=== PATIENT | male | born 1960 | race Caucasian/White ===

== ENCOUNTER 2019-04-21 15:42 | Inpatient (IN) ==
[2019-04-21] MEDS ORDERED: Ondansetron 4 MG/2 ML VIAL IVP ONE (15:59)
[2019-04-21] MEDS ORDERED: *HR* HYDROmorphone (PF) 1 MG/ML SYRINGE IVP ONE (15:59)
[2019-04-21 16:22] LABS: Basophils % 0.2 %; Eosinophils # 0.1 K/mcL (0.0-0.6); Eosinophils % 0.7 %; Hematocrit 40.1 % (37.5-50.1); Hemoglobin 13.4 g/dL (12.9-16.9); Immature Granulocytes % 0.3 % (0-4); Lymphocytes # 1.1 K/mcL (0.6-4.6); Lymphocytes % 7.3 %; Mean Corpuscular HGB Conc 33.4 g/dL (31.6-35.5); Mean Corpuscular Hemoglobin 30.7 pg (28.0-33.3); Mean Corpuscular Volume 91.8 fL (83.0-100.0); Mean Platelet Volume 9.9 fL (9.4-12.4); Monocytes # 0.6 K/mcL (0.0-1.3); Monocytes % 4.1 %; Neutrophils # 12.9 K/mcL (1.6-8.9); Platelet Count 279 K/mcL (140-400); Red Blood Count 4.37 M/mcL (4.19-5.50); Red Cell Distribution Width 11.6 % (11.5-14.5); Segmented Neutrophils % 87.4 %; White Blood Count 14.7 K/mcL (4.3-11.1)
[2019-04-21 16:34] LABS: INR 1.1; Prothrombin Time 12.3 Seconds (9.4-12.1)
[2019-04-21 16:38] LABS: BUN/Creatinine Ratio 15 (6-26); Blood Urea Nitrogen 17 mg/dL (6-20); Calcium 9.7 mg/dL (8.6-10.3); Carbon Dioxide 33 mEq/L (23-29); Chloride 101 mEq/L (98-107); Glucose 116 mg/dL (70-105); Osmolality,Calculated 281 (280-300); Potassium 4.4 mEq/L (3.5-5.1); Sodium 134 mEq/L (136-145); eGFR For African Americans > 60 (> 60); eGFR For Non-African Americans > 60 (> 60)
[2019-04-21 16:39] LABS: Albumin/Globulin Ratio 1.6 (1.1-2.2); Bilirubin,Direct 0.1 mg/dL (0.0-0.2); Bilirubin,Indirect 0.3 mg/dL (0.0-1.2); Bilirubin,Total 0.4 mg/dL (0.3-1.0); Globulin 2.5 g/dL (2.4-3.5); Total Protein 6.5 g/dL (6.4-8.9)
[2019-04-21 17:19] LABS: Bilirubin,Urine Small (Negative); Blood,Urine Negative (Negative); Clarity,Urine Clear (Clear); Color,Urine Dark Yellow (Yellow); Glucose,Urine (UA) Normal (Normal); Ketones,Urine Trace mg/dL (Negative); Leukocyte Esterase,Urine Negative (Negative); Nitrite,Urine Negative (Negative); Protein,Urine 30 mg/dL (Neg-Trace); Specific Gravity,Urine 1.027 (1.010-1.025); Urobilinogen,Urine Normal (Normal)
[2019-04-21 17:21] LABS: Bacteria,Urine None Seen per hpf (None-Few); Hyaline Casts,Urine None Seen per lpf (None-Few); RBC,Urine 0-3 per hpf (0-3); Squamous Epithelial Cell,Urine Few per lpf (None-Few); WBC,Urine 0-3 per hpf (0-3)
[2019-04-21] MEDS ORDERED: Piperacillin/Tazobactam 4.5 GM in Water for inj. (sterile) 20 ML IVP ONE (17:28)
[2019-04-21] MEDS ORDERED: Pantoprazole 40 MG in 0.9 % Sodium Chloride Mini Bag 100 ML IVC SCH (17:30)
[2019-04-21] MEDS ORDERED: Piperacillin/Tazobactam 3.375 GM in Water for inj. (sterile) 20 ML IVP ONE (17:31)
[2019-04-21] MEDS ORDERED: Pantoprazole 40 MG VIAL IVP ONE (17:55)
[2019-04-21] MEDS ORDERED: Ondansetron 4 MG/2 ML VIAL IVP PRN ×2 (18:14→23:38)
[2019-04-21] MEDS ORDERED: Naloxone 0.4 MG/ML INJ IVP PRN ×2 (18:14→23:38)
[2019-04-21] MEDS ORDERED: *HR* Promethazine 25 MG/ML VIAL IVP PRN (18:14)
[2019-04-21] MEDS ORDERED: Ringers Solution, Lactated 2,000 ML IVC SCH ×2 (18:15→23:38)
[2019-04-21] MEDS ORDERED: Morphine Sulfate 2 MG/ML SYRINGE IVP PRN ×2 (18:41→23:38)
[2019-04-21] MEDS ORDERED: *HR* FentaNYL (PF) 100 MCG/2 ML VIAL ONE (18:53)
[2019-04-21] MEDS ORDERED: *HR* Midazolam HCl 2 MG/2 ML VIAL ONE (18:54)
[2019-04-21] MEDS ORDERED: *HR* Propofol 200 MG/20 ML VIAL IVP ONE (18:54)
[2019-04-21] MEDS ORDERED: Acetaminophen IV 1,000 MG/100 ML INFUS..BTL ONE (19:15)
[2019-04-21] MEDS ORDERED: Albuterol 2.5 MG/3 ML NEBULIZER IH ONE (19:18)
[2019-04-21] MEDS ORDERED: Bupivacaine/EPI 1:200k 0.5%PF 30 ML VIAL ONE (19:19)
[2019-04-21 19:20] LABS: Hematocrit 37.3 % (37.5-50.1); Hemoglobin 12.4 g/dL (12.9-16.9)
[2019-04-21] MEDS ORDERED: *HR* OxyCODONE Immed Rel 5 MG TABLET PO PRN (19:25)
[2019-04-21] MEDS ORDERED: EPHEDrine 50 MG/ML VIAL ONE (20:07)
[2019-04-21] MEDS ORDERED: Neostigmine Methylsulfate 3 MG/3 ML SYRINGE ONE (21:29)
[2019-04-21] MEDS: *HR* HYDROmorphone (PF) 1 MG/ML SYRINGE IVP PRN ×4 (22:06→22:53)
[2019-04-21] MEDS ORDERED: Ringers Solution, Lactated 1,000 ML ONE (22:51)
[2019-04-22] MEDS ORDERED: Piperacillin/Tazobactam 3.375 GM in 0.9 % Sodium Chloride Mini Bag 100 ML IVPB SCH
[2019-04-22] MEDS: Piperacillin/Tazobactam 3.375 GM in 0.9 % Sodium Chloride Mini Bag 100 ML IVPB SCH ×3 (00:35→16:25)
[2019-04-22] MEDS: Acetaminophen IV 1,000 MG/100 ML INFUS..BTL IVPB SCH ×4 (01:56→20:00)
[2019-04-22] MEDS: Pantoprazole 40 MG in 0.9 % Sodium Chloride Mini Bag 100 ML IVC SCH ×5 (02:56→20:05)
[2019-04-22 05:03] LABS: Basophils % 0.1 %; Hematocrit 37.3 % (37.5-50.1); Hemoglobin 12.9 g/dL (12.9-16.9); Immature Granulocytes % 0.4 % (0-4); Lymphocytes # 0.4 K/mcL (0.6-4.6); Lymphocytes % 3.8 %; Mean Corpuscular HGB Conc 34.6 g/dL (31.6-35.5); Mean Corpuscular Hemoglobin 32.6 pg (28.0-33.3); Mean Corpuscular Volume 94.2 fL (83.0-100.0); Mean Platelet Volume 10.2 fL (9.4-12.4); Monocytes # 0.3 K/mcL (0.0-1.3); Monocytes % 2.5 %; Neutrophils # 9.3 K/mcL (1.6-8.9); Platelet Count 252 K/mcL (140-400); Red Blood Count 3.96 M/mcL (4.19-5.50); Red Cell Distribution Width 11.5 % (11.5-14.5); Segmented Neutrophils % 93.2 %
[2019-04-22 05:21] LABS: BUN/Creatinine Ratio 15 (6-26); Blood Urea Nitrogen 16 mg/dL (6-20); Calcium 8.8 mg/dL (8.6-10.3); Carbon Dioxide 27 mEq/L (23-29); Chloride 101 mEq/L (98-107); Glucose 138 mg/dL (70-105); Osmolality,Calculated 283 (280-300); Potassium 4.9 mEq/L (3.5-5.1); Sodium 135 mEq/L (136-145); eGFR For African Americans > 60 (> 60); eGFR For Non-African Americans > 60 (> 60)
[2019-04-22] MEDS ORDERED: Chloraseptic Spray 177 ML BOTTLE MM PRN (11:35)
[2019-04-22] MEDS: 0.9 % Sodium Chloride 1,000 ML IVC SCH (14:16)
[2019-04-22] MEDS ORDERED: *HR* OxyCODONE Oral Soln 5 MG/5 ML UD.LIQ PO ONE (16:48)
[2019-04-22] MEDS ORDERED: Morphine Sulfate 2 MG/ML SYRINGE IVP ONE (17:15)
[2019-04-23] MEDS: Pantoprazole 40 MG in 0.9 % Sodium Chloride Mini Bag 100 ML IVC SCH ×5 (00:38→21:15)
[2019-04-23] MEDS: 0.9 % Sodium Chloride 1,000 ML IVC SCH ×3 (00:39→20:00)
[2019-04-23] MEDS: Piperacillin/Tazobactam 3.375 GM in 0.9 % Sodium Chloride Mini Bag 100 ML IVPB SCH ×3 (00:40→15:42)
[2019-04-23] MEDS: Acetaminophen IV 1,000 MG/100 ML INFUS..BTL IVPB SCH ×4 (04:01→20:04)
[2019-04-23 04:32] LABS: Basophils % 0.3 %; Eosinophils # 0.3 K/mcL (0.0-0.6); Eosinophils % 2.7 %; Hematocrit 36.2 % (37.5-50.1); Hemoglobin 11.8 g/dL (12.9-16.9); Immature Granulocytes % 0.3 % (0-4); Lymphocytes % 10.3 %; Mean Corpuscular HGB Conc 32.6 g/dL (31.6-35.5); Mean Corpuscular Hemoglobin 30.7 pg (28.0-33.3); Mean Corpuscular Volume 94.3 fL (83.0-100.0); Mean Platelet Volume 9.8 fL (9.4-12.4); Monocytes # 0.5 K/mcL (0.0-1.3); Monocytes % 5.6 %; Neutrophils # 7.9 K/mcL (1.6-8.9); Platelet Count 239 K/mcL (140-400); Red Blood Count 3.84 M/mcL (4.19-5.50); Red Cell Distribution Width 11.6 % (11.5-14.5); Segmented Neutrophils % 80.8 %; White Blood Count 9.7 K/mcL (4.3-11.1)
[2019-04-23 04:52] LABS: BUN/Creatinine Ratio 14 (6-26); Blood Urea Nitrogen 15 mg/dL (6-20); Calcium 8.6 mg/dL (8.6-10.3); Carbon Dioxide 27 mEq/L (23-29); Chloride 104 mEq/L (98-107); Glucose 69 mg/dL (70-105); Magnesium 1.8 mg/dL (1.6-2.6); Osmolality,Calculated 287 (280-300); Phosphorous 3.2 mg/dL (2.7-4.5); Potassium 4.1 mEq/L (3.5-5.1); Sodium 139 mEq/L (136-145); eGFR For African Americans > 60 (> 60); eGFR For Non-African Americans > 60 (> 60)
[2019-04-23] MEDS: Fluconazole 400 MG/200 ML 400 MG/200 ML BAG IVPB SCH (09:47)
[2019-04-23] MEDS ORDERED: *HR* Dextrose 50 % in Water (Syg) 50 ML SYRINGE IVP ONE (11:38)
[2019-04-23] MEDS ORDERED: Dextrose Gel 15 GM/37.5 ML TUBE PO PRN ×2 (17:19)
[2019-04-23] MEDS ORDERED: D5% in Water 1,000 ML IVC PRN (17:19)
[2019-04-23] MEDS: *HR* Dextrose 50 % in Water (Syg) 50 ML SYRINGE IVP PRN (17:47)
[2019-04-23] MEDS ORDERED: NIFEdipine 10 MG CAPSULE PO ONE (21:56)
[2019-04-23] MEDS ORDERED: *HR* Metoprolol 5 MG/5 ML VIAL IVP ONE (23:48)
[2019-04-24] MEDS: *HR* Dextrose 50 % in Water (Syg) 50 ML SYRINGE IVP PRN (00:08)
[2019-04-24] MEDS: Piperacillin/Tazobactam 3.375 GM in 0.9 % Sodium Chloride Mini Bag 100 ML IVPB SCH ×4 (00:09→23:55)
[2019-04-24] MEDS: Pantoprazole 40 MG in 0.9 % Sodium Chloride Mini Bag 100 ML IVC SCH ×5 (04:17→21:54)
[2019-04-24] MEDS: Acetaminophen IV 1,000 MG/100 ML INFUS..BTL IVPB SCH ×4 (04:18→21:50)
[2019-04-24 05:22] LABS: Basophils % 0.4 %; Eosinophils # 0.3 K/mcL (0.0-0.6); Eosinophils % 3.3 %; Hemoglobin 12.6 g/dL (12.9-16.9); Immature Granulocytes % 0.4 % (0-4); Lymphocytes # 0.9 K/mcL (0.6-4.6); Lymphocytes % 8.9 %; Mean Corpuscular HGB Conc 32.3 g/dL (31.6-35.5); Mean Corpuscular Volume 96.1 fL (83.0-100.0); Mean Platelet Volume 9.9 fL (9.4-12.4); Monocytes # 0.6 K/mcL (0.0-1.3); Monocytes % 5.9 %; Neutrophils # 7.8 K/mcL (1.6-8.9); Platelet Count 274 K/mcL (140-400); Red Blood Count 4.06 M/mcL (4.19-5.50); Red Cell Distribution Width 11.5 % (11.5-14.5); Segmented Neutrophils % 81.1 %; White Blood Count 9.7 K/mcL (4.3-11.1)
[2019-04-24 05:39] LABS: BUN/Creatinine Ratio 12 (6-26); Blood Urea Nitrogen 13 mg/dL (6-20); Calcium 8.9 mg/dL (8.6-10.3); Carbon Dioxide 29 mEq/L (23-29); Chloride 98 mEq/L (98-107); Glucose 107 mg/dL (70-105); Osmolality,Calculated 285 (280-300); Potassium 3.6 mEq/L (3.5-5.1); Sodium 137 mEq/L (136-145); eGFR For African Americans > 60 (> 60); eGFR For Non-African Americans > 60 (> 60)
[2019-04-24] MEDS: Fluconazole 400 MG/200 ML 400 MG/200 ML BAG IVPB SCH (09:18)
[2019-04-24] MEDS: 0.9 % Sodium Chloride 1,000 ML IVC SCH ×2 (17:14→20:30)
[2019-04-24] MEDS ORDERED: amLODIPine 5 MG TABLET PO ONE (18:32)
[2019-04-25] MEDS: Pantoprazole 40 MG in 0.9 % Sodium Chloride Mini Bag 100 ML IVC SCH ×5 (01:55→23:47)
[2019-04-25] MEDS: Acetaminophen IV 1,000 MG/100 ML INFUS..BTL IVPB SCH ×4 (02:27→19:26)
[2019-04-25] MEDS: 0.9 % Sodium Chloride 1,000 ML IVC SCH (02:31)
[2019-04-25 07:06] LABS: Basophils % 0.3 %; Eosinophils # 0.4 K/mcL (0.0-0.6); Eosinophils % 5.3 %; Hematocrit 40.6 % (37.5-50.1); Hemoglobin 13.1 g/dL (12.9-16.9); Immature Granulocytes % 0.4 % (0-4); Lymphocytes % 13.7 %; Mean Corpuscular HGB Conc 32.3 g/dL (31.6-35.5); Mean Corpuscular Hemoglobin 30.5 pg (28.0-33.3); Mean Corpuscular Volume 94.4 fL (83.0-100.0); Mean Platelet Volume 9.5 fL (9.4-12.4); Monocytes # 0.5 K/mcL (0.0-1.3); Monocytes % 6.7 %; Neutrophils # 5.4 K/mcL (1.6-8.9); Platelet Count 266 K/mcL (140-400); Red Cell Distribution Width 11.6 % (11.5-14.5); Segmented Neutrophils % 73.6 %; White Blood Count 7.3 K/mcL (4.3-11.1)
[2019-04-25 07:26] LABS: BUN/Creatinine Ratio 10 (6-26); Blood Urea Nitrogen 9 mg/dL (6-20); Calcium 8.9 mg/dL (8.6-10.3); Carbon Dioxide 31 mEq/L (23-29); Chloride 103 mEq/L (98-107); Glucose 90 mg/dL (70-105); Osmolality,Calculated 290 (280-300); Potassium 3.9 mEq/L (3.5-5.1); Sodium 141 mEq/L (136-145); eGFR For African Americans > 60 (> 60); eGFR For Non-African Americans > 60 (> 60)
[2019-04-25] MEDS: Piperacillin/Tazobactam 3.375 GM in 0.9 % Sodium Chloride Mini Bag 100 ML IVPB SCH ×3 (09:46→23:43)
[2019-04-25] MEDS: Fluconazole 400 MG/200 ML 400 MG/200 ML BAG IVPB SCH (09:48)
[2019-04-25] MEDS: amLODIPine 5 MG TABLET PO SCH (09:49)
[2019-04-26] MEDS: Pantoprazole 40 MG in 0.9 % Sodium Chloride Mini Bag 100 ML IVC SCH ×3 (00:52→11:37)
[2019-04-26] MEDS: Acetaminophen IV 1,000 MG/100 ML INFUS..BTL IVPB SCH ×2 (02:00→07:46)
[2019-04-26] MEDS: amLODIPine 5 MG TABLET PO SCH (07:50)
[2019-04-26] MEDS: Piperacillin/Tazobactam 3.375 GM in 0.9 % Sodium Chloride Mini Bag 100 ML IVPB SCH ×2 (08:13→16:06)
[2019-04-26] MEDS: Fluconazole 400 MG/200 ML 400 MG/200 ML BAG IVPB SCH (08:14)
[2019-04-26] MEDS ORDERED: *HR* OxyCODONE/APAP 5/325 TABLET PO PRN (13:05)
[2019-04-26] MEDS: Pantoprazole 40 MG VIAL IVP SCH (18:01)
[2019-04-26] MEDS: Ketorolac 15 MG/ML VIAL IVP SCH (18:02)
[2019-04-26] MEDS: 0.9 % Sodium Chloride 1,000 ML IVC SCH (19:55)
[2019-04-27] MEDS: Piperacillin/Tazobactam 3.375 GM in 0.9 % Sodium Chloride Mini Bag 100 ML IVPB SCH ×2 (01:03→07:29)
[2019-04-27] MEDS: Ketorolac 15 MG/ML VIAL IVP SCH ×3 (01:03→11:38)
[2019-04-27] MEDS: Pantoprazole 40 MG VIAL IVP SCH (06:06)
[2019-04-27] MEDS: amLODIPine 5 MG TABLET PO SCH (07:28)
[2019-04-27] MEDS: Fluconazole 400 MG/200 ML 400 MG/200 ML BAG IVPB SCH (07:29)
[2019-04-27 10:28] VITALS: BP 132/76
== END 2019-04-27 12:38 | disposition home or self-care (01) | DRG 327 ==
LOC: EMEROOARM 15:42 → 3ANU 18:05 → SUATTDRO 18:05 → 3ANU 18:46
PROVIDERS: ADMIT Internal Medicine; ATTEND Student in an Organized Health Care Education/Training Program

== ENCOUNTER 2020-10-12 06:03 | Inpatient (IN) ==
[~2020-10-12 06:03] MED LIST: Acetaminophen IV 1,000 MG/100 ML BAG IVPB ONE; Famotidine 20 MG/2 ML VIAL IVP ONE
[2020-10-12] MEDS ORDERED: Ringers Solution, Lactated 1,000 ML IVC SCH (06:45)
[2020-10-12] MEDS ORDERED: CeFAZolin Syr 2,000MG/20 ML 2,000 MG/20 ML SYRINGE IVPB ONE (06:45)
[2020-10-12] MEDS ORDERED: Heparin 1,000 UNITS/500 mL 500 ML ONE (06:54)
[2020-10-12] MEDS ORDERED: Heparin 1,000 UNITS/500 mL 1,500 ML ONE (06:54)
[2020-10-12] MEDS ORDERED: *HR* Phenylephrine 10 MG/ML VIAL ONE (06:54)
[2020-10-12] MEDS ORDERED: *HR* Remifentanil 2 MG VIAL IVP ONE (07:00)
[2020-10-12] MEDS ORDERED: EPHEDrine 50 MG/ML VIAL ONE (07:05)
[2020-10-12] MEDS ORDERED: *HR* Heparin 5,000 UNIT/ML VIAL ONE ×2 (07:09→10:25)
[2020-10-12] MEDS ORDERED: *HR* FentaNYL (PF) 100 MCG/2 ML VIAL ONE (07:10)
[2020-10-12] MEDS ORDERED: *HR* Propofol 200 MG/20 ML VIAL IVP ONE (07:10)
[2020-10-12] MEDS ORDERED: *HR* Midazolam HCl 2 MG/2 ML VIAL ONE (07:10)
[2020-10-12] MEDS ORDERED: *HR* Rocuronium Bromide 50 MG/5 ML VIAL ONE (07:13)
[2020-10-12] MEDS ORDERED: Lidocaine -MPF 2% 2 ML VIAL ONE (07:13)
[2020-10-12] MEDS ORDERED: Ondansetron 4 MG/2 ML VIAL ONE (07:13)
[2020-10-12] MEDS ORDERED: Dexamethasone 4 MG/ML VIAL ONE (07:13)
[2020-10-12] MEDS ORDERED: Lidocaine -MPF 4% 5 ML AMPUL ONE ×2 (07:16→18:20)
[2020-10-12] MEDS ORDERED: Albuterol 2.5 MG/3 ML NEBULIZER IH PRN (07:20)
[2020-10-12] MEDS ORDERED: Nitroglycerin 0.4 MG TAB.SUBL SL PRN (07:20)
[2020-10-12] MEDS ORDERED: Naloxone 0.4 MG/ML INJ IVP PRN ×2 (07:20→13:12)
[2020-10-12] MEDS ORDERED: Ondansetron 4 MG/2 ML VIAL IVP PRN ×2 (07:20→13:12)
[2020-10-12] MEDS ORDERED: Hydrocortisone Sodium Succ 100 MG/2 ML VIAL IVP ONE (07:20)
[2020-10-12] MEDS ORDERED: NiCARdipine 2.5 MG/10 ML Syringe IVPB ONE (07:26)
[2020-10-12] MEDS ORDERED: *HR* Vasopressin 20 UNIT/ML VIAL ONE (07:26)
[2020-10-12] MEDS ORDERED: ceFAZolin 1,000 MG, Sodium Chloride IRRigation 1,000 ML IR ONE (07:45)
[2020-10-12 09:32] LABS: ABG Base Excess 1 mEq/L (-2 to 3); ABG Chloride 102 mEq/L (98-107); ABG Glucose 95 mg/dL (60-95); ABG HCO3 27 mEq/L (21-27); ABG Ionized Calcium 1.13 mmol/L (1.15-1.35); ABG Oxygen Saturation 100 % (95-98); ABG PCO2 50 mmHg (35-45); ABG PH 7.35 pH Units (7.32-7.45); ABG PO2 418 mmHg (85-104); ABG TCO2 29 mEq/L (20-26)
[2020-10-12] MEDS ORDERED: EPINEPHrine 1 MG/ML VIAL ONE (10:29)
[2020-10-12] MEDS: *HR* FentaNYL (PF) 100 MCG/2 ML VIAL IVP PRN ×3 (11:53→12:08)
[2020-10-12] MEDS ORDERED: *HR* Labetalol 20 MG/4 ML SYRINGE IVP PRN (13:12)
[2020-10-12] MEDS ORDERED: Acetaminophen 325 MG TABLET PO PRN (13:12)
[2020-10-12] MEDS: D5% in 0.45% NACL 1,000 ML IVC SCH (13:57)
[2020-10-12] MEDS: *HR* HYDROcodone/Acet 5/325 mg TABLET PO PRN ×2 (14:02→20:15)
[2020-10-12] MEDS: ceFAZolin 2,000 MG in 0.9 % Sodium Chloride 100 ML IVPB SCH ×2 (16:00→23:56)
[2020-10-12] MEDS: *HR* OxyCODONE Immed Rel 5 MG TABLET PO PRN (23:58)
[2020-10-13] MEDS: D5% in 0.45% NACL 1,000 ML IVC SCH (03:14)
[2020-10-13 03:36] LABS: Basophils % 0.2 %; Eosinophils % 0.1 %; Hematocrit 32.6 % (37.5-50.1); Hemoglobin 10.7 g/dL (12.9-16.9); Immature Granulocytes % 0.5 % (0-4); Lymphocytes # 0.8 K/mcL (0.6-4.6); Lymphocytes % 7.1 %; Mean Corpuscular HGB Conc 32.8 g/dL (31.6-35.5); Mean Corpuscular Hemoglobin 30.2 pg (28.0-33.3); Mean Corpuscular Volume 92.1 fL (83.0-100.0); Mean Platelet Volume 10.1 fL (9.4-12.4); Monocytes # 0.8 K/mcL (0.0-1.3); Monocytes % 7.5 %; Platelet Count 161 K/mcL (140-400); Red Blood Count 3.54 M/mcL (4.19-5.50); Red Cell Distribution Width 11.6 % (11.5-14.5); Segmented Neutrophils % 84.6 %; White Blood Count 10.6 K/mcL (4.3-11.1)
[2020-10-13] MEDS: *HR* HYDROcodone/Acet 5/325 mg TABLET PO PRN (03:40)
[2020-10-13 03:54] LABS: BUN/Creatinine Ratio 18 (6-26); Blood Urea Nitrogen 22 mg/dL (8-23); Calcium 8.3 mg/dL (8.6-10.3); Carbon Dioxide 30 mEq/L (23-29); Chloride 104 mEq/L (98-107); Glucose 132 mg/dL (70-105); Osmolality,Calculated 291 (280-300); Potassium 4.2 mEq/L (3.5-5.1); Sodium 138 mEq/L (136-145); eGFR For African Americans > 60 (> 60); eGFR For Non-African Americans > 60 (> 60)
[2020-10-13] MEDS ORDERED: hydroCHLOROthiazide 25 MG TABLET PO SCH (09:00)
[2020-10-13] MEDS ORDERED: lisinopriL 20 MG TABLET PO SCH (09:00)
[2020-10-13] MEDS ORDERED: amLODIPine 5 MG TABLET PO SCH (09:00)
[2020-10-13] MEDS: ceFAZolin 2,000 MG in 0.9 % Sodium Chloride 100 ML IVPB SCH (09:18)
[2020-10-13] MEDS: *HR* OxyCODONE Immed Rel 5 MG TABLET PO PRN (09:18)
[2020-10-13] MEDS ORDERED: Budesonide/Formoterol 160/4.5 1 PUFF INH IH SCH (10:00)
[2020-10-13 12:37] VITALS: BP 137/92
== END 2020-10-13 13:01 | disposition home or self-care (01) | DRG 269 ==
LOC: SAMDAY 06:03 → 2NNU 13:00
PROVIDERS: ADMIT Surgery Vascular Surgery; ATTEND Surgery Vascular Surgery